=== PATIENT | male | born 1950 | race Two or more races ===

== ENCOUNTER 2020-10-17 22:04 | Inpatient (IN) | payer BC, MEDICARE ==
[~2020-10-17] VITALS: Ht 167.6 cm; Wt 69.5 kg
--- NOTE | 2020-10-17 22:34 | NUR ---
pt has had abd pain after eating for last 3 days and went to [facility] for it. pt was told he has a inflamed pancreas and a mass blocking his right kidney urine flow. pt transfered to [facility] for further evaluation per [facility]
[2020-10-17] MEDS ORDERED: MORPHINE SULFATE 4 MG/ML, 1ML ONE (22:38)
[2020-10-17] MEDS ORDERED: MORPHINE SULFATE 4 MG/ML, 1ML IVPush PRN (23:00)
[2020-10-18] VITALS (7 sets, daily range): BP systolic 100–110; BP diastolic 51–69
[2020-10-18] MEDS ORDERED: DOCUSATE 100 MG CAPSULE PO PRN
[2020-10-18] MEDS ORDERED: ONDANSETRON 2MG/ML, 2ML IVPush PRN
[2020-10-18] MEDS ORDERED: morphine SULFATE 10 MG/ML, 1ML IVPush PRN
[2020-10-18] MEDS ORDERED: DOXYCYCLINE 100 MG in DEXTROSE 5% 250 ML IV SCH (00:30)
[2020-10-18] MEDS ORDERED: PROC10TA78 PO (00:31)
[2020-10-18] MEDS ORDERED: MAGN400T26 PO (00:31)
[2020-10-18] MEDS ORDERED: CEPH-376 PO (00:31)
[2020-10-18] MEDS ORDERED: PANT40TA6 PO (00:31)
[2020-10-18] MEDS ORDERED: CAPE500T24 PO (00:31)
[2020-10-18] MEDS ORDERED: APIX5TAB PO (00:31)
[2020-10-18] MEDS ORDERED: HYDR-2214 PO (00:31)
[2020-10-18] MEDS: SODIUM CHLORIDE 0.9% 1,000 ML IV SCH ×3 (01:13→17:24)
[2020-10-18] MEDS: CEFTRIAXONE 2 GM in DEXTROSE 5% 50 ML IVPB SCH (01:13)
[2020-10-18 05:38] LABS: BASOPHILS % (AUTO) 0 % (0-1); EOSINOPHILS % (AUTO) 1 % (1-7); LYMPHOCYTES % (AUTO) 16 % (22-44); MEAN CORPUSCULAR HEMOGLOBIN 26.7 pg (27.5-34.5); MEAN CORPUSCULAR HGB CONC 32.6 g/dL (33.2-36.2); MEAN PLATELET VOLUME 8.3 fL (7.4-10.4); MONOCYTES % (AUTO) 12 % (2-9); NEUTROPHILS % (AUTO) 71 % (42-75); PLATELET COUNT 218 x10^3/uL (130-400); RED BLOOD COUNT 4.32 x10^6/uL (4.38-5.82); RED CELL DISTRIBUTION WIDTH 19.7 % (9.4-14.8)
[2020-10-18 05:40] LABS: INTERNATIONAL NORMALIZED RATIO 1.02 (0.93-1.1); PROTHROMBIN TIME 10.9 Seconds (9.6-11.5)
[2020-10-18 05:42] LABS: ALBUMIN 3.4 g/dL (3.4-5.0); ANION GAP 8 mmol/L (5-15); CALCIUM 8.7 mg/dL (8.5-10.1); CHLORIDE 103 mmol/L (98-107)
[2020-10-18 05:55] LABS: ALANINE AMINOTRANSFERASE 44 U/L (12-78); ALKALINE PHOSPHATASE 141 U/L (45-117); BILIRUBIN,TOTAL 0.6 mg/dL (0.2-1.0); CHOL/HDL RATIO 2.2; CHOLESTEROL, TOTAL 142 mg/dL (140-239); CREATININE 2.41 mg/dL (0.7-1.3); HDL CHOL % 46 % (26-37); HDL CHOLESTEROL (DIRECT) 66 mg/dL (40-60); LDL CHOLESTEROL,CALCULATED 53 mg/dL (54-169); LDL/HDL RATIO 0.8 (0.5-3.0); TOTAL PROTEIN 8.1 g/dL (6.4-8.2); TRIGLYCERIDES 116 mg/dL (50-200); VLDL CHOLESTEROL 23 mg/dL (0-25)
[2020-10-18 06:25] LABS: MD SCAN
[2020-10-18] MEDS ORDERED: FENTANYL PF 100 MCG/2ML ONE (11:30)
[2020-10-18] MEDS ORDERED: MIDAZOLAM 1 MG/ML, 5ML ONE (11:30)
[2020-10-18] MEDS ORDERED: LIDOCAINE 1%, 20ML ONE (12:54)
[2020-10-19 00:33] VITALS: BP 109/68
[2020-10-19] MEDS: SODIUM CHLORIDE 0.9% 1,000 ML IV SCH ×3 (00:37→09:24)
[2020-10-19] MEDS: CEFTRIAXONE 2 GM in DEXTROSE 5% 50 ML IVPB SCH (00:42)
[2020-10-19 05:06] LABS: BASOPHILS % (AUTO) 0 % (0-1); EOSINOPHILS % (AUTO) 1 % (1-7); LYMPHOCYTES % (AUTO) 12 % (22-44); MEAN CORPUSCULAR HEMOGLOBIN 26.4 pg (27.5-34.5); MEAN CORPUSCULAR HGB CONC 32.5 g/dL (33.2-36.2); MEAN PLATELET VOLUME 8.2 fL (7.4-10.4); MONOCYTES % (AUTO) 13 % (2-9); NEUTROPHILS % (AUTO) 74 % (42-75); PLATELET COUNT 212 x10^3/uL (130-400); RED BLOOD COUNT 4.08 x10^6/uL (4.38-5.82); RED CELL DISTRIBUTION WIDTH 20.4 % (9.4-14.8)
[2020-10-19 05:13] LABS: ALANINE AMINOTRANSFERASE 31 U/L (12-78); ALBUMIN 2.7 g/dL (3.4-5.0); ANION GAP 10 mmol/L (5-15); CALCIUM 8.2 mg/dL (8.5-10.1); CHLORIDE 112 mmol/L (98-107); CREATININE 1.96 mg/dL (0.7-1.3)
[2020-10-19 05:15] LABS: ALKALINE PHOSPHATASE 114 U/L (45-117); BILIRUBIN,TOTAL 0.3 mg/dL (0.2-1.0)
[2020-10-19 05:25] LABS: MD NO
[2020-10-19 07:02] VITALS: BP 100/66
[2020-10-19 12:30] VITALS: BP 93/58
[2020-10-19] MEDS: LACTATED RINGERS 1,000 ML IV SCH (16:18)
[2020-10-19 18:36] VITALS: BP 106/65
[2020-10-20 00:26] VITALS: BP 103/66
[2020-10-20] MEDS: CEFTRIAXONE 2 GM in DEXTROSE 5% 50 ML IVPB SCH (01:17)
[2020-10-20 05:07] LABS: BASOPHILS % (AUTO) 0 % (0-1); EOSINOPHILS % (AUTO) 2 % (1-7); LYMPHOCYTES % (AUTO) 17 % (22-44); MEAN CORPUSCULAR HEMOGLOBIN 26.3 pg (27.5-34.5); MEAN CORPUSCULAR HGB CONC 32.4 g/dL (33.2-36.2); MEAN PLATELET VOLUME 8.3 fL (7.4-10.4); MONOCYTES % (AUTO) 19 % (2-9); NEUTROPHILS % (AUTO) 63 % (42-75); PLATELET COUNT 189 x10^3/uL (130-400); RED BLOOD COUNT 3.83 x10^6/uL (4.38-5.82); RED CELL DISTRIBUTION WIDTH 20.3 % (9.4-14.8)
[2020-10-20 05:18] LABS: ANION GAP 13 mmol/L (5-15); CALCIUM 8.5 mg/dL (8.5-10.1); CHLORIDE 115 mmol/L (98-107); CREATININE 1.72 mg/dL (0.7-1.3)
[2020-10-20 05:21] LABS: MD NO
[2020-10-20] MEDS: LACTATED RINGERS 1,000 ML IV SCH (06:11)
[2020-10-20 07:01] VITALS: BP 116/74
[2020-10-20 13:18] VITALS: BP 99/61
== END 2020-10-20 17:45 | disposition home or self-care (01) | DRG 693 ==
LOC: ED 23:47 → EDIP 10-18 00:07 → 4NW 10-18 00:09
PROVIDERS: ADMIT Internal Medicine; ATTEND Family Medicine
PROC: 0T9130Z Drainage of Left Kidney with Drainage Device, Percutaneous Approach (ICD-10-PCS; principal; 2020-10-18)
DX: N13.8 Other obstructive and reflux uropathy (principal); K85.90 Acute pancreatitis without necrosis or infection, unspecified; E87.1 Hypo-osmolality and hyponatremia; E87.2 Acidosis; N17.9 Acute kidney failure, unspecified; N13.6 Pyonephrosis; D64.81 Anemia due to antineoplastic chemotherapy; I10 Essential (primary) hypertension; T45.1X5A Adverse effect of antineoplastic and immunosuppressive drugs, initial encounter; Z85.038 Personal history of other malignant neoplasm of large intestine; Z87.440 Personal history of urinary (tract) infections; Z93.2 Ileostomy status; E16.2 Hypoglycemia, unspecified
CPT/HCPCS: 36415; 50432; 96374; 99285; J3490; 76942; 80048; 80053; 80061; 82962; 83690; 83735; 84443; 85025; 85610; 85730; 99156; 99157; G0378; J0696; J2250; J3010; C1729; J2270; J7030; J7120